=== PATIENT | female | born 1955 | race Caucasian/White ===

== ENCOUNTER 2017-09-05 02:47 | Emergency (ER) | payer BC ==
[~2017-09-05] VITALS: Ht 167.6 cm; Wt 95.5 kg
[~2017-09-05 02:47] MED LIST: ASPIRIN E.C. 8181 MG PO; LOPRESSOR 225 MG/TAB PO; PRILOSEC 20MG20 MG PO; TRICOR200 MG PO; VICODIN 5/5001 UDTAB PO; ZOFRAN4 M1 PO
[2017-09-05 03:04] VITALS: TEMP 98
[2017-09-05] MEDS ORDERED: CARDIZEM LA180 MG PO (03:11)
[2017-09-05 04:46] VITALS: BP 137/80
[2017-09-05] MEDS ORDERED: NORCO 325 MG-51 TAB PO (05:10)
[2017-09-05 05:25] VITALS: PULSE 65
== END 2017-09-05 05:25 | disposition home or self-care (01) ==
LOC: COL.ER 02:47
DX: S93.602A Unspecified sprain of left foot, initial encounter (principal); K21.9 Gastro-esophageal reflux disease without esophagitis; I10 Essential (primary) hypertension; Z79.82 Long term (current) use of aspirin; W01.0XXA Fall on same level from slipping, tripping and stumbling without subsequent striking against object, initial encounter; X50.0XXA Overexertion from strenuous movement or load, initial encounter

== ENCOUNTER → 2017-10-06 | Outpatient (REF) ==
[~2017-10-06] MED LIST changes: +CARDIZEM LA180 MG PO; +NORCO 325 MG-51 TAB PO
== END ==
LOC: ZLAB.WCH 20:45
DX: Z01.89 Encounter for other specified special examinations (principal)

== ENCOUNTER → 2018-11-04 | Outpatient (REF) | LOC: ZLAB.WCH 19:08 | DX: Z01.89 Encounter for other specified special examinations (principal) ==